=== PATIENT | male | born 1970 | race Caucasian/White ===

== ENCOUNTER 2018-10-10 23:05 | Inpatient (IN) | payer OTHER ==
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
[2018-10-11] MEDS ORDERED: Sodium Chloride 0.9% 1,000 ML IV ONE (00:42)
[2018-10-11 01:27] LABS: BASO % 0.5 % (0.0-2.0); EOS # 0.2 K/uL (0.0-0.7); HEMOGLOBIN 14.9 g/dL (12.0-18.0); LYMPH # 2.6 K/uL (1.0-4.3); LYMPH % 45.1 % (20.0-40.0); MEAN CELL VOLUME 89.1 fL (80.0-94.0); MEAN CORPUSCULAR HEMOGLOBIN 30.6 pg (27.0-31.0); MEAN CORPUSCULAR HGB CONC 34.4 g/dL (33.0-37.0); MEAN PLATELET VOLUME 9.6 fL (7.2-11.7); MONO # 0.3 K/uL (0.0-0.8); MONO % 5.4 % (0.0-10.0); NEUT # 2.6 K/uL (1.8-7.0); NRBC % 0.1 % (0.0-2.0); RBC 4.85 Mil/uL (4.40-5.90); RED CELL DISTRIBUTION WIDTH 12.8 % (11.5-14.5); WHITE BLOOD COUNT 5.7 K/uL (4.8-10.8)
[2018-10-11 01:28] LABS: VENOUS BLOOD GAS BASE EXCESS 3.5 mmol/L (0.0-2.0); VENOUS BLOOD GAS PCO2 47 mmHg (40-60); VENOUS BLOOD GAS PO2 41 mm/Hg (30-55)
[2018-10-11 01:46] LABS: INR 1.3; PROTHROMBIN TIME 13.9 SECONDS (9.7-12.2)
[2018-10-11 01:52] LABS: ALB/GLOB RATIO 1.4 (1.0-2.1); ALBUMIN 4.6 g/dL (3.5-5.0); ALT/SGPT 34 U/L (21-72); AST/SGOT 41 U/L (17-59); BLOOD UREA NITROGEN 13 mg/dL (9-20); CALCIUM 9.1 mg/dl (8.6-10.4); GFR NON-AFRICAN AMERICAN > 60
[2018-10-11 02:43] LABS: URINE BILIRUBIN NEGATIVE (NEGATIVE); URINE BLOOD NEGATIVE (NEGATIVE); URINE CLARITY Clear (Clear); URINE COLOR Yellow (YELLOW); URINE GLUCOSE (UA) NORMAL (Normal); URINE LEUKOCYTE ESTERASE NEG Leu/uL (Negative); URINE PROTEIN NEGATIVE (NEGATIVE); URINE UROBILINOGEN NORMAL mg/dL (0.2-1.0)
[2018-10-11 04:12] LABS: BARBITURATES, UR NEGATIVE (NEGATIVE); BENZODIAZEPINES, UR NEGATIVE (NEGATIVE); OPIATES, UR NEGATIVE (NEGATIVE); PHENCYCLIDINE, UR NEGATIVE (NEGATIVE)
--- NOTE | 2018-10-11 10:01 | CT ---
Date of service: 10/11/2018 PROCEDURE: CT HEAD WITHOUT CONTRAST. HISTORY: R/O Bleed. Dizziness. COMPARISON: None available. TECHNIQUE: Axial computed tomography images were obtained through the head/brain without intravenous contrast. Radiation dose: Total exam DLP = 1111.54 mGy-cm. This CT exam was performed using one or more of the following dose reduction techniques: Automated exposure control, adjustment of the mA and/or kV according to patient size, and/or use of iterative reconstruction technique. FINDINGS: HEMORRHAGE: No intracranial hemorrhage. BRAIN: No mass effect or edema. No atrophy or chronic microvascular ischemic changes. Punctate hypodensity in the region of the right basal ganglia/right external capsule on series 4, image 27 which may represent a prominent perivascular space versus small lacunar infarct. Clinical correlation. Punctate left basal ganglia calcification. VENTRICLES: Unremarkable. No hydrocephalus. Cavum septum pellucidum and vergae. CALVARIUM: Unremarkable. PARANASAL SINUSES: Mild mucosal thickening of the right maxillary sinus. MASTOID AIR CELLS: Unremarkable as visualized. No inflammatory changes. OTHER FINDINGS: Mild soft tissue swelling overlying the left posterior parietal cranium. IMPRESSION: No acute intracranial abnormality. Punctate hypodensity in the region of the right basal ganglia/right external capsule on series 4, image 27 which may represent a prominent perivascular space versus small lacunar infarct. Clinical correlation. Sinus mucosal disease as above. If symptoms persists, consider correlation with MRI. A preliminary report was generated at 2:23 a.m. on 10/11/[address] Ramakrishna Smallwood from [facility].
--- NOTE | 2018-10-11 10:23 | RAD ---
Chest x-ray single frontal view HISTORY: Shortness of breath. COMPARISON: None available. FINDINGS: Mild venous congestion. Right hilar prominence. Tortuous aorta. Bibasilar breast and nipple shadows. Heart size within normal limits. Degenerative changes in the spine. Impression: No focal infiltrate or effusion.
[2018-10-11 11:12] LABS: BASO % 0.5 % (0.0-2.0); EOS # 0.1 K/uL (0.0-0.7); EOS % 3.7 % (0.0-4.0); HEMOGLOBIN 14.4 g/dL (12.0-18.0); LYMPH # 1.4 K/uL (1.0-4.3); LYMPH % 36.1 % (20.0-40.0); MEAN CELL VOLUME 89.9 fL (80.0-94.0); MEAN CORPUSCULAR HGB CONC 34.5 g/dL (33.0-37.0); MEAN PLATELET VOLUME 9.4 fL (7.2-11.7); MONO # 0.2 K/uL (0.0-0.8); MONO % 6.2 % (0.0-10.0); NEUT % 53.5 % (50.0-75.0); NRBC % 0.1 % (0.0-2.0); RBC 4.64 Mil/uL (4.40-5.90); RED CELL DISTRIBUTION WIDTH 12.8 % (11.5-14.5); WHITE BLOOD COUNT 3.8 K/uL (4.8-10.8)
[2018-10-11 11:35] LABS: ALB/GLOB RATIO 1.4 (1.0-2.1); ALBUMIN 4.1 g/dL (3.5-5.0); ALT/SGPT 33 U/L (21-72); AST/SGOT 27 U/L (17-59); BLOOD UREA NITROGEN 12 mg/dL (9-20); CALCIUM 8.1 mg/dl (8.6-10.4); GFR NON-AFRICAN AMERICAN > 60
--- NOTE | 2018-10-11 11:47 | CP.PCM.PN ---
Subjective - Date & Time of Evaluation Date of Evaluation: 10/11/18 Time of Evaluation: 09:45 - Subjective Subjective: Medicine progress note ( Dr. Gannon's service) Patient was seen and examined at bedside. Patient is still with significant dizziness with mild nausea. Patient is unable to keep his eyes open due to dizziness, which he describes as "room spinning". Currently, patient denies any symptoms of headache or visual disturbances HPI: Patient is a 48 year old male with no known medical history, who presents to the ED via ambulance due to a witnessed syncope/seizure episode noted by Co- workers. 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 As the day was progressing so did his symptoms, however, while working a car he felt dizzy and fell to his knees due to mild syncope episodes. As the incident, patient states that he was able to stand up on his own and head to a chair in order to rest. After the witnessed episode by his co-workers, ambulance was called. Patient admits to associated symptoms nausea, dizziness and diffuse tingling. Patient denies any symptoms of fever, chills, chest pain, palpitations, shortness of breath or visual disturbance. PMD: None PMHx: Denies PSHx: Denies FHx: Non-contributory Medications: Denies Allergies: Denies Social Hx: Lives with family. 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 Denies use of tobacco, ETOH and illcit drugs Objective - Vital Signs/Intake and Output Vital Signs (last 24 hours): Temp Pulse Resp BP Pulse Ox 98.1 F 69 18 108/57 L 95 10/11/18 07:00 10/11/18 07:00 10/11/18 07:00 10/11/18 07:00 10/11/18 07:00 Intake and Output: 10/11/18 10/11/18 06:59 18:59 Intake Total 360 Balance 360 - Medications Medications: Current Medications Influenza Virus Vaccine (Fluzone Quad [id number]) 60 mcg IM .ONCE ONE Stop: 10/13/18 10:01 Pneumococcal Polyvalent Vaccine (Pneumovax 23 Vaccine) 0.5 ml IM .ONCE ONE Stop: 10/13/18 10:01 - Labs Labs: 10/11/18 11:05 10/11/18 11:05 PT 13.9 SECONDS (9.7-12.2) H 10/11/18 01:24 INR 1.3 10/11/18 01:24 APTT 31 SECONDS (21-34) 10/11/18 01:24 - Constitutional Appears: Well, No Acute Distress - Head Exam Head Exam: ATRAUMATIC, NORMAL INSPECTION - Eye Exam Eye Exam: EOMI, Normal appearance Pupil Exam: NORMAL ACCOMODATION, PERRL Additional comments: No nystagmus noted on Rodanthe-Hallpike maneuver Mild-moderate positive June-Hallpike maneuver - ENT Exam ENT Exam: Mucous Membranes Moist - Respiratory Exam Respiratory Exam: Clear to Ausculation Bilateral, NORMAL BREATHING PATTERN. absent: Accessory Muscle Use, Chest Wall Tenderness, Rhonchi, Wheezes, Respiratory Distress - Cardiovascular Exam Cardiovascular Exam: REGULAR RHYTHM, +S1, +S2 - GI/Abdominal Exam GI & Abdominal Exam: Soft, Normal Bowel Sounds. absent: Distended, Firm, Guarding, Rigid, Tenderness - Extremities Exam Extremities Exam: Full ROM, Normal Inspection. absent: Calf Tenderness, Pedal Edema - Neurological Exam Neurological Exam: Alert, Awake, CN II-XII Intact, Oriented x3 Neuro motor strength exam: Left Upper Extremity: 5, Right Upper Extremity: 5, Left Lower Extremity: 5, Right Lower Extremity: 5 - Psychiatric Exam Psychiatric exam: Normal Affect, Normal Mood Assessment and Plan (1) Dizziness Assessment & Plan: Possibly secondary to BPV Consultation: - Neurology, Dr. Tay----> Help appreciated * Management as per recommendation Imaging/Labs: Head CT: No acute intracranial abnormality. Punctate hypodensity in the region of the right basal ganglia/right external capsule on series 4, image 27 which may represent a prominent perivascular space versus small lacunar infarct. Clinical correlation. Sinus mucosal disease as above. F/u CTA Head and Neck UDS: Negative Management: * Meclizine 25mg PO once * Diazepam 2mg PO Q8H as per neurology * Fall precautions/Seizure precautions Status: Acute (2) Prophylactic measure Assessment & Plan: DVT: SCDs GI: Not indicated All plans and management discussed with Dr. Gannon Status: Acute
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
[2018-10-11 17:44] VITALS: RESP 20
[2018-10-11] MEDS ORDERED: Iodixanol 320 MG/ML 100 ML BOTTLE IV ONE (18:16)
--- NOTE | 2018-10-11 19:08 | CARD ---
APPROVED REPORT Date of service: 10/10/2018 EKG Measurement Heart [id number] <Conclusion> Normal sinus rhythm Normal ECG
[2018-10-12 06:33] LABS: BASO % 0.7 % (0.0-2.0); EOS # 0.2 K/uL (0.0-0.7); EOS % 5.8 % (0.0-4.0); HEMOGLOBIN 15.1 g/dL (12.0-18.0); LYMPH # 1.6 K/uL (1.0-4.3); LYMPH % 40.1 % (20.0-40.0); MEAN CELL VOLUME 90.1 fL (80.0-94.0); MEAN CORPUSCULAR HEMOGLOBIN 30.8 pg (27.0-31.0); MEAN CORPUSCULAR HGB CONC 34.2 g/dL (33.0-37.0); MEAN PLATELET VOLUME 9.1 fL (7.2-11.7); MONO # 0.3 K/uL (0.0-0.8); MONO % 7.6 % (0.0-10.0); NEUT # 1.8 K/uL (1.8-7.0); NEUT % 45.8 % (50.0-75.0); NRBC % 0.1 % (0.0-2.0); RBC 4.89 Mil/uL (4.40-5.90); RED CELL DISTRIBUTION WIDTH 12.9 % (11.5-14.5)
[2018-10-12 06:50] LABS: ALB/GLOB RATIO 1.3 (1.0-2.1); ALBUMIN 4.1 g/dL (3.5-5.0); ALT/SGPT 31 U/L (21-72); AST/SGOT 26 U/L (17-59); BLOOD UREA NITROGEN 16 mg/dL (9-20); CALCIUM 8.8 mg/dl (8.6-10.4); GFR NON-AFRICAN AMERICAN > 60
--- NOTE | 2018-10-12 10:22 | CP.PCM.PN ---
Subjective - Date & Time of Evaluation Date of Evaluation: 10/12/18 Time of Evaluation: 07:40 - Subjective Subjective: Medicine progress note ( Dr. Gannon's service) Patient was seen and examined at bedside, while resting in bed comfortably. Patient is with significant relief and with very mild dizziness. Patient is able to open his eyes without any problems. Patient denies any symptoms of fever, chills, nausea, vomiting, chest pain, palpitations, shortness of breath but still with mild dizziness. Objective - Vital Signs/Intake and Output Vital Signs (last 24 hours): Temp Pulse Resp BP Pulse Ox 97.6 F 76 20 117/72 94 L 10/12/18 07:00 10/12/18 07:00 10/12/18 07:00 10/12/18 07:00 10/12/18 07:00 - Medications Medications: Current Medications Diazepam (Valium) 2 mg PO Q8 MOE Last Admin: 10/12/18 06:29 Dose: 2 mg Influenza Virus Vaccine (Fluzone Quad [id number]) 60 mcg IM .ONCE ONE Stop: 10/13/18 10:01 Pneumococcal Polyvalent Vaccine (Pneumovax 23 Vaccine) 0.5 ml IM .ONCE ONE Stop: 10/13/18 10:01 - Labs Labs: 10/12/18 06:25 10/12/18 06:25 PT 13.9 SECONDS (9.7-12.2) H 10/11/18 01:24 INR 1.3 10/11/18 01:24 APTT 31 SECONDS (21-34) 10/11/18 01:24 - Constitutional Appears: Well, No Acute Distress - Head Exam Head Exam: ATRAUMATIC, NORMAL INSPECTION - Eye Exam Eye Exam: EOMI, Normal appearance - ENT Exam ENT Exam: Mucous Membranes Moist - Respiratory Exam Respiratory Exam: Clear to Ausculation Bilateral, NORMAL BREATHING PATTERN. absent: Chest Wall Tenderness, Decreased Breath Sounds, Prolonged Expiratory Phase, Rhonchi, Wheezes, Respiratory Distress - Cardiovascular Exam Cardiovascular Exam: REGULAR RHYTHM, +S1, +S2. absent: Tachycardia, Clicks, Diastolic murmur, Murmur - GI/Abdominal Exam GI & Abdominal Exam: Soft, Normal Bowel Sounds. absent: Distended, Firm, Guarding, Rigid, Tenderness - Extremities Exam Extremities Exam: Normal Inspection. absent: Calf Tenderness, Pedal Edema - Neurological Exam Neurological Exam: Alert, Awake, Oriented x3 - Psychiatric Exam Psychiatric exam: Normal Affect, Normal Mood - Skin Skin Exam: Normal Color Assessment and Plan (1) Dizziness Assessment & Plan: Possibly secondary to BPV Consultation: - Neurology, Dr. Tay----> Help appreciated * Management as per recommendation Imaging/Labs: Head CT: No acute intracranial abnormality. Punctate hypodensity in the region of the right basal ganglia/right external capsule on series 4, image 27 which may represent a prominent perivascular space versus small lacunar infarct. Clinical correlation. Sinus mucosal disease as above. Brain MRI without contrast: Acute parenchymal at mount involving the brain. Inflammatory changes of the paranasal sinuses. Please refer to the EMR for a complete course CTA Head and Neck: Significant for sinusitis. Will initiate treatment UDS: Negative Management: * Meclizine 25mg PO once * Diazepam 2mg PO Q8H as per neurology * Fall precautions/Seizure precautions Status: Acute (2) Sinusitis Assessment & Plan: Brain MRI without contrast: Acute parenchymal at mount involving the brain. Inflammatory changes of the paranasal sinuses. Please refer to the EMR for a complete course CTA Head and Neck: Significant for sinusitis. Will initiate treatment - will initiate treatment (Augmentin 875/125mg PO Q12H for 5-7 days as dizziness can be also secondary to severe sinusitis - Florastor 250mg PO BID Status: Acute (3) Prophylactic measure Assessment & Plan: DVT: SCDs GI: Not indicated Disposition: Please discharge patient home Please follow up with Dr. Tay within 1 week in order to establish care and for EEG outpatient Please follow up with Dr. Gannon in order to establish primary care Please continue Augmentin 875/125mg PO Q12H for 7 days for sinusitis noted all imaging. Please take with yogurt or probiotics Please take Valium 2mg PO every 8 hours only as needed for symptoms of severe dizziness. Please be aware that this medication can cause sedation. Please do not take with alcohol. Please do not drive, use machinery or do anything that needs alertness or clear vision until you can do so safely Please return to the hospital if symptoms resume Please take care. All plans and management discussed with Dr. Gannon Status: Acute
--- NOTE | 2018-10-12 10:53 | CP.PCM.PN ---
<Juanita Eaton - Last Filed: 10/12/18 16:53> Subjective - Date & Time of Evaluation Date of Evaluation: 10/12/18 Time of Evaluation: 10:53 - Subjective Subjective: Progress note for Dr. Tay Patient was seen and examined at bedside in no acute distress. Patient reports feeling better and denies dizziness, nausea, vomiting, fevers, headaches, changes in vision, chest pain, palpitations, constipation, diarrhea, urinary inc ontinence. Objective - Vital Signs/Intake and Output Vital Signs (last 24 hours): Temp Pulse Resp BP Pulse Ox 97.6 F 76 20 117/72 94 L 10/12/18 07:00 10/12/18 07:00 10/12/18 07:00 10/12/18 07:00 10/12/18 07:00 - Medications Medications: Current Medications Diazepam (Valium) 2 mg PO Q8 MOE Last Admin: 10/12/18 06:29 Dose: 2 mg Influenza Virus Vaccine (Fluzone Quad [id number]) 60 mcg IM .ONCE ONE Stop: 10/13/18 10:01 Pneumococcal Polyvalent Vaccine (Pneumovax 23 Vaccine) 0.5 ml IM .ONCE ONE Stop: 10/13/18 10:01 - Labs Labs: 10/12/18 06:25 10/12/18 06:25 PT 13.9 SECONDS (9.7-12.2) H 10/11/18 01:24 INR 1.3 10/11/18 01:24 APTT 31 SECONDS (21-34) 10/11/18 01:24 - Constitutional Appears: No Acute Distress - Head Exam Head Exam: NORMAL INSPECTION - Eye Exam Eye Exam: EOMI, Normal appearance, PERRL. absent: Nystagmus Pupil Exam: PERRL - ENT Exam ENT Exam: Mucous Membranes Moist, Normal Exam (no tongue lesions/abrasions/lacerations) - Respiratory Exam Respiratory Exam: Clear to Ausculation Bilateral, NORMAL BREATHING PATTERN - Cardiovascular Exam Cardiovascular Exam: REGULAR RHYTHM, +S1, +S2 - GI/Abdominal Exam GI & Abdominal Exam: Soft, Normal Bowel Sounds. absent: Distended, Tenderness - Extremities Exam Extremities Exam: Full ROM, Normal Inspection. absent: Pedal Edema, Tenderness - Neurological Exam Neurological Exam: Alert, Awake, CN II-XII Intact, Oriented x3, Reflexes Normal. absent: Motor Sensory Deficit Neuro motor strength exam: Left Upper Extremity: 5, Right Upper Extremity: 5, Left Lower Extremity: 5, Right Lower Extremity: 5 - Psychiatric Exam Psychiatric exam: Normal Affect, Normal Mood - Skin Skin Exam: Dry, Normal Color, Warm Assessment and Plan - Assessment and Plan (Free Text) Plan: 48 year old with no past medical history who presents with dizziness and temporary loc. Plan: Vertigo - possibly secondary to post-concussive syndrome from prior head trauma - Brain MRI: no acute abnormality - Head CTA: normal - Head CT: no acute abnormality; sinus disease Syncope - possibly secondary to vertigo, post-concussive syndrome - Continue to monitor on telemetry - EEG recommended; can be done as outpatient - Recommended valium 2mg PO Q8hr prn Case discussed with Dr. Jasvir Nickerson, PGY2 <Javier Tay - Last Filed: 10/12/18 17:19> Objective - Vital Signs/Intake and Output Vital Signs (last 24 hours): Temp Pulse Resp BP Pulse Ox 97.9 F 91 H 20 113/73 96 10/12/18 15:00 10/12/18 15:00 10/12/18 15:00 10/12/18 15:00 10/12/18 15:00 Intake and Output: 10/12/18 10/12/18 06:59 18:59 Intake Total 300 Balance 300 - Medications Medications: Current Medications Amoxicillin/Clavulanate Potassium (Augmentin 875 Mg-125 Mg Tab) 1 tab PO Q12H MOE; Protocol Last Admin: 10/12/18 12:39 Dose: 1 tab Diazepam (Valium) 2 mg PO Q8 MOE Last Admin: 10/12/18 14:17 Dose: Not Given Saccharomyces Boulardii (Florastor) 250 mg PO BID [facility] Last Admin: 10/12/18 12:39 Dose: 250 mg - Labs Labs: 10/12/18 06:25 10/12/18 06:25 PT 13.9 SECONDS (9.7-12.2) H 10/11/18 01:24 INR 1.3 10/11/18 01:24 APTT 31 SECONDS (21-34) 10/11/18 01:24 Assessment and Plan (1) Vertigo Status: Acute (2) Syncope Status: Acute Attending/Attestation - Attestation I have personally seen and examined this patient.: Yes I have fully participated in the care of the patient.: Yes I have reviewed all pertinent clinical information, including history, physical exam and plan: Yes Notes (Text): 10/12/18 17:19 I agree with the assessment and plan: continue valium 2 mg Q8 PRN vertigo. Will obtain EEG as outpatient.
[2018-10-12] MEDS ORDERED: Amoxicillin-Clav 875-125 mg Tab PO SCH (12:00)
--- NOTE | 2018-10-12 12:07 | CT ---
Date of service: 10/11/2018 PROCEDURE: CT Angiography of the neck and brain with contrast HISTORY: Eval. COMPARISON: Comparison made with prior CT scan earlier same day.. TECHNIQUE: Contiguous axial images of the neck and brain were obtained from the level of the vertex of the skull to the superior mediastinum in the arteriographic phase of enhancement. Coronal and sagittal reformats or also generated. IV contrast dose: Radiation dose: Total exam DLP = 731.64 mGy-cm. This CT exam was performed using one or more of the following dose reduction techniques: Automated exposure control, adjustment of the mA and/or kV according to patient size, and/or use of iterative reconstruction technique. FINDINGS: The aortic arch and origins of the great vessels widely patent. The common carotid arteries included carotid bifurcations are also widely patent without occlusion, atherosclerotic disease- significant stenosis or dissection.. The internal carotid arteries including the petrous cavernous and supraclinoid segments also widely patent.. The vertebral arteries appear symmetric in caliber and patent throughout. Basilar artery is also patent.. There is a prominent right posterior communicating artery with hypoplastic appearing right-sided P1 segment. The visualized major branches of the [place] and distal branch vessels are patent and symmetric. No evidence of large aneurysm nor vascular malformation. OTHER FINDINGS: No other significant findings IMPRESSION: Normal CT Angiography of the neck.
[2018-10-12] MEDS: Saccharomyces Boulardi 250 mg Cap PO SCH ×2 (12:39→17:47)
--- NOTE | 2018-10-12 14:17 | MRI ---
Date of service: 10/11/2018 PROCEDURE: MRI BRAIN WITHOUT CONTRAST HISTORY: Head trauma and syncope COMPARISON: Comparison made with prior CT scan brain 10/11/2018.. TECHNIQUE: Multiplanar, multisequence MR images of the brain were obtained without intravenous contrast enhancement. FINDINGS: HEMORRHAGE: No acute parenchymal, subarachnoid or extra-axial hemorrhage. No hemosiderin deposits are identified on gradient echo weighted sequence. DWI: No evidence of an acute or early subacute infarction seen on diffusion imaging. BRAIN PARENCHYMA: No mass effect or edema. No atrophy or chronic microvascular ischemic changes. VENTRICLES: No obstructive hydrocephalus. Incidental note again made of a septum cavum pellucidum and vergae. CRANIUM: Unremarkable. ORBITS: Orbits and contents grossly unremarkable.. PARANASAL SINUSES/MASTOIDS: Minor mucosal thickening right maxillary antrum and sphenoid sinus. There is also mild mucosal thickening seen in the ethmoid air complex and probably some minimal mucosal thickening in the inferior aspect of the left maxillary antrum. VASCULAR SYSTEM: Visualized major vascular flow voids at skull base patent.. OTHER FINDINGS: None. IMPRESSION: No evidence of acute hemorrhage or infarct. Minor mucosal thickening seen within the aforementioned paranasal sinuses as above.
[2018-10-12 16:19] VITALS: BP 113/73; PULSE 91; TEMP 97.9; O2SAT 96
[2018-10-12] MEDS ORDERED: Influenza Vaccine 60 MCG/0.5 ML SYR (3 yr & up) IM ONE (17:00)
[2018-10-12] MEDS ORDERED: Pneumococcal 23-Valent Vaccine IM ONE (17:00)
[2018-10-13] MEDS ORDERED: Influenza Vaccine 60 MCG/0.5 ML SYR (3 yr & up) IM ONE (10:00)
[2018-10-13] MEDS ORDERED: Pneumococcal 23-Valent Vaccine IM ONE (10:00)
== END 2018-10-12 18:00 | disposition home or self-care (01) | DRG 312 ==
LOC: C.ER 23:05 → C.6T 10-11 02:49 → UNDODISIN 10-12 17:59
PROVIDERS: ADMIT Internal Medicine Pulmonary Disease; ATTEND Internal Medicine Pulmonary Disease
DX: R55 Syncope and collapse (principal); R56.9 Unspecified convulsions; H81.90 Unspecified disorder of vestibular function, unspecified ear; J32.9 Chronic sinusitis, unspecified